=== PATIENT | female | born 1985 | race Two or more races ===

== ENCOUNTER 2018-11-28 21:46 | Emergency (ER) | payer OTHER ==
[~2018-11-28] VITALS: Ht 167.6 cm; Wt 112.1 kg
--- NOTE | 2018-11-28 22:03 | NUR ---
PT PRESENTED WITH C/O VAGINAL PAIN X 3 DAYS, STATED ' I HAVE A LUMP AND PAIN THAT STARTS IN THE VAGINA AND GOES UP TO MY HEAD AND DOWN TO MY KNEES", PROVIDED PT WITH GOWN, MONITORS APPLED, SIDERAILS UP X2, CLL LIGHT WITHIN REACH. AWAITING ERP FOR EVAL AND ORDERS
[2018-11-28] MEDS ORDERED: LIDOCAINE-MPF 1%, 5ML ONE (22:29)
[2018-11-28] MEDS ORDERED: LIDOCAINE 2%, 20ML SQ ONE (22:30)
[2018-11-28 23:33] VITALS: BP 133/61
--- NOTE | 2018-11-28 23:34 | NUR ---
PT RESTING ON GURNEY, C/O VAGINAL PAIN, DENIES NEED FOR MEDICATION AT THIS TIME, REQUESTING TO BE D/C'D, WILL NOTIFY ERP.
--- NOTE | 2018-11-29 | NUR ---
Patient/Caregiver given discharge instructions and they have confirmed that they understand the instructions. Patient ambulatory with steady gait.
== END 2018-11-29 00:01 | disposition home or self-care (01) ==
LOC: ED 23:17
DX: N75.1 Abscess of Bartholin's gland (principal); Z87.01 Personal history of pneumonia (recurrent)
CPT/HCPCS: 10060; 56420; 99283

== ENCOUNTER 2018-12-02 19:26 | Emergency (ER) | payer SELFPAY ==
[~2018-12-02] VITALS: Ht 170.2 cm; Wt 114.6 kg
[2018-12-02 19:42] VITALS: BP 119/78
--- NOTE | 2018-12-02 21:32 | NUR ---
NO ANSWER WHEN CALLED TO BE ROOMED
--- NOTE | 2018-12-02 21:45 | NUR ---
NO ANSWER X2 WHEN CALLED TO BE ROOMED
--- NOTE | 2018-12-02 21:59 | NUR ---
no answer when called for imani x3 lwbs
== END 2018-12-02 22:01 | disposition left against medical advice (07) ==
LOC: ED 21:45
DX: Z48.01 Encounter for change or removal of surgical wound dressing (principal)
CPT/HCPCS: 99281

== ENCOUNTER 2019-10-13 22:12 | Emergency (ER) | payer MEDICAID ==
[~2019-10-13] VITALS: Ht 167.6 cm; Wt 120.0 kg
[2019-10-13] MEDS ORDERED: KETOROLAC 30 MG/1 ML ONE (22:39)
[2019-10-13] MEDS ORDERED: ONDANSETRON 2MG/ML, 2ML ONE (22:40)
--- NOTE | 2019-10-13 22:51 | NUR ---
Patient into room with NICOLE. Complains of cough and nausea for a week and a half. EMS reports patient had called [facility] three days prior, had received a liter of fluids then declined being brought to the hospital. Patient laying in bed, moaning, has a slight cough, but auscultation of chest reveals clear breath sounds. Patient has low grade fever (see triage) but all other vital signs are within normal limits. Patient assessed by provider, antinausea and antipyretic medication adminstered (see MAR) awaiting imaging and lab results.
[2019-10-13] MEDS ORDERED: KETOROLAC 30 MG/1 ML IVPush ONE (23:00)
[2019-10-13] MEDS ORDERED: ONDANSETRON 2MG/ML, 2ML IVPush ONE (23:00)
[2019-10-13 23:17] VITALS: BP 110/50
[2019-10-13 23:17] LABS: BASOPHILS % (AUTO) 0 % (0-1); EOSINOPHILS # (AUTO) 0.09 x10^3/uL (0-0.4); EOSINOPHILS % (AUTO) 2 % (1-7); LYMPHOCYTES # (AUTO) 1.72 x10^3/uL (1-3.4); LYMPHOCYTES % (AUTO) 39 % (22-44); MD NO; MEAN CORPUSCULAR HEMOGLOBIN 26.7 pg (27.0-34.8); MEAN CORPUSCULAR HGB CONC 32.2 g/dL (32.4-35.8); MEAN PLATELET VOLUME 8.7 fL (7.4-10.4); MONOCYTES # (AUTO) 0.43 x10^3/uL (0.2-0.8); MONOCYTES % (AUTO) 10 % (2-9); NEUTROPHILS # (AUTO) 2.13 x10^3/uL (1.8-6.8); NEUTROPHILS % (AUTO) 49 % (42-75); PLATELET COUNT 181 x10^3/uL (130-400); RED BLOOD COUNT 4.32 x10^6/uL (3.82-5.3); RED CELL DISTRIBUTION WIDTH 15.4 % (9.6-15.2)
[2019-10-13 23:28] LABS: ALANINE AMINOTRANSFERASE 66 U/L (12-78); ALBUMIN 2.8 g/dL (3.4-5.0); ANION GAP 5 mmol/L (5-15); CALCIUM 7.7 mg/dL (8.5-10.1); CHLORIDE 107 mmol/L (98-107); CREATININE 0.64 mg/dL (0.55-1.02)
[2019-10-13 23:33] LABS: ALKALINE PHOSPHATASE 93 U/L (45-117); BILIRUBIN,TOTAL 0.2 mg/dL (0.2-1.0); TOTAL PROTEIN 6.9 g/dL (6.4-8.2)
== END 2019-10-14 00:59 | disposition home or self-care (01) ==
LOC: ED 23:18
DX: R11.2 Nausea with vomiting, unspecified (principal); R10.84 Generalized abdominal pain; R05 Cough; F17.200 Nicotine dependence, unspecified, uncomplicated; Z72.89 Other problems related to lifestyle
CPT/HCPCS: 36415; 71046; 80053; 83690; 84703; 85025; 96374; 96375; 99284; J1885; J2405